=== PATIENT | female | born 1940 | race Two or more races ===

== ENCOUNTER 2019-03-04 14:08 | Emergency (ER) | payer OTHER ==
[~2019-03-04] VITALS: Ht 129.5 cm; Wt 38.6 kg
[2019-03-04] MEDS ORDERED: SYNTHROID88 MCG (14:21)
[2019-03-04] MEDS ORDERED: TENORMIN50 M1 (14:21)
[2019-03-04] MEDS ORDERED: PREDNISONE10 M2 (14:22)
== END 2019-03-04 20:18 | disposition home or self-care (01) ==
LOC: ER 14:08
DX: J44.1 Chronic obstructive pulmonary disease with (acute) exacerbation (principal); B96.0 Mycoplasma pneumoniae [M. pneumoniae] as the cause of diseases classified elsewhere